=== PATIENT | male | born 1980 | race Caucasian/White ===

== ENCOUNTER 2016-05-13 09:48 | Inpatient (IN) | payer OTHER ==
[2016-05-13 10:38] VITALS: BMI 29.2
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
[2016-05-13] MEDS ORDERED: P-EPHED 60MG/TRIPROLIDI 2.5MG TABLET PO PRN (12:23)
[2016-05-13] MEDS ORDERED: MAGNESIUM CITRATE 300 ML BOTTLE PO PRN (12:23)
[2016-05-13] MEDS ORDERED: MAG HYDROX/AL HYDROX/SIMETH 30 ML UNIT-DOSE CUP PO PRN (12:23)
[2016-05-13] MEDS ORDERED: hydrOXYzine PAMOATE 50 MG CAPSULE (FP) PO PRN (12:23)
[2016-05-13] MEDS ORDERED: MAGNESIUM HYDROX 2400MG/30ML ORAL SUSPENSION 30 ML CUP PO PRN (12:23)
[2016-05-13] MEDS ORDERED: diphenhydrAMINE HCL 50 MG CAPSULE PO PRN (12:23)
[2016-05-13] MEDS ORDERED: LOPERAMIDE HCL 2 MG CAPSULE PO PRN (12:23)
[2016-05-13] MEDS ORDERED: IBUPROFEN 400 MG TABLET (FP) PO PRN (12:23)
[2016-05-13] MEDS ORDERED: ACETAMINOPHEN 325 MG TABLET (FP) PO PRN (12:23)
[2016-05-13] MEDS ORDERED: guaiFENesin/D-METHORPHAN HB 10 ML UNIT-DOSE CUPS PO PRN (12:23)
[2016-05-13] MEDS ORDERED: MENTHOL/PHENOL 1 EACH UD MM PRN (12:23)
[2016-05-13] MEDS ORDERED: diazePAM 5 MG TABLET PO ONE (12:33)
[2016-05-13] MEDS ORDERED: METHADONE HCL 10 MG TABLET (FOR DETOX USE ONLY) PO ONE ×2 (12:35→23:00)
[2016-05-13] MEDS: CYCLOBENZAPRINE HCL 10 MG TABLET (FP) PO PRN (13:21)
[2016-05-13] MEDS: NICOTINE 21 MG/24 HOURS TOPICAL PATCH TD SCH (13:35)
[2016-05-13] MEDS: diazePAM 5 MG TABLET PO SCH ×2 (13:45→22:08)
[2016-05-13] MEDS: GABAPENTIN 300 MG CAPSULE (FP) PO SCH ×2 (13:55→22:08)
--- NOTE | 2016-05-13 14:20 | PN ---
[facility] Progress Note Note: Pt. just admitted to unit a short while ago, reporting rash on medial aspects of bilateral arms, chest, abdomen, and back X approx. 2 weeks. Pt. reports that affected sites feel itchy. Pt. denies any recent sick contact with other persons. Macular erythematous lesions noted scattered throughout each of the above mentioned areas. No bleeding, unusual discharge, or signs of infection noted at any of the affected areas. Benadryl, 25 mg PO Q 6 HRS PRN and Hysrocortisone Topical Ointment TID PRN ordered. Nakia Rivas, DUSTIN
--- NOTE | 2016-05-13 15:07 | CONSULT ---
[facility] Psychiatric Consult - Data Date of interview: 05/13/16 Admission source: [facility] Identifying data: This is one of several admissions to [facility] for this 36 y/ o male seeking detox treatment on for alcohol,marijuana,cocaine ,heroin and benzodiazepine dependence.Patient is single without children, homeless,unemployed and deprived of any source of income. Substance Abuse History: - Smoking Cessation. Smoking history: Current every day smoker. Have you smoked in the past 12 months: Yes. Aproximately how many cigarettes per day: 10. Cigars Per Day: 0. Hx Chewing Tobacco Use: No. Initiated information on smoking cessation: Yes. 'Breaking Loose' booklet given : 05/13/16. - Substance & Tx. History. Hx Alcohol Use: Yes. Hx Substance Use : Yes. Substance Use Type: Alcohol, Cocaine, Heroin, Marijuana, Tranquilizers. Hx Substance Use Treatment: Yes (2014 UNKNOWN FACILITY). - Substances Abused. Heroin. Route: Injection. Frequency: Daily. Amount used: 10-12 bags. Age of first use: 14. Date of Last Use: 05/12/16. Alcohol. Route: Oral. Frequency: Daily. Amount used: 7-8 beers. Age of first use: 12. Date of Last Use: 05/12/16. Cocaine. Route: Injection. Frequency: Daily. Amount used: $200. Age of first use: 18. Date of Last Use: 05/12/16. Marijuana/Hashish. Route: Smoking. Frequency: Daily. Amount used: 1 bag. Age of first use: 11. Date of Last Use: 05/12/16. xanax or klonopin. Route : Oral. Frequency: Daily. Amount used: 6mg. Age of first use: 19. Date of Last Use: 05/11/16. Confirmed by patient in this interview. Medical History: Low back pain and weight loss. Psychiatric History: Patient admits to a distant history of psychiatric hospitalizations (onset at age 13).Diagnosed with Bipolar Disorder and ADHD ( self-report).Medicated with neurontin (dose not recalled by the patient).Mr Swanson states that he is not connected with any [employer] care provider.Released from half-way in February 2016,as per self-report.Patient denies history of suicide attempts.He declines to consider any psychotropic medications other than neurontin and detox regimen. Physical/Sexual Abuse/Trauma History: Patient denies. Additional Comment: Urine Drug Screen Results: THC-Marijuana, KELLY-Cocaine, OPI- Opiates.Noted. Mental Status Exam - Mental Status Exam Alert and Oriented to: Time, Place, Person Cognitive Function: Good Patient Appearance: Disheveled (covered with tattoos :face,torso,neck,arms) Mood: Anxious Affect: Normal Range Patient Behavior: Appropriate, Cooperative Speech Pattern: Clear Voice Loudness: Normal Thought Process: Goal Oriented Thought Disorder: Not Present Hallucinations: Denies Suicidal Ideation: Denies Homicidal Ideation: Denies Insight/Judgement: Poor Sleep: Poorly, Difficulty falling asleep Appetite: Good Muscle strength/Tone: Normal Gait/Station: Normal Psychiatric Findings - Problem List ([place] 1, 2,3) (1) Alcohol dependence with uncomplicated withdrawal Current Visit: Yes Status: Acute (2) Cannabis dependence Current Visit: Yes Status: Acute (3) Opioid dependence with withdrawal Current Visit: Yes Status: Acute (4) Uncomplicated sedative, hypnotic or anxiolytic withdrawal Current Visit: Yes Status: Acute (5) Cocaine dependence Current Visit: Yes Status: Acute (6) Nicotine dependence Current Visit: Yes Status: Acute (7) Substance induced mood disorder Current Visit: Yes Status: Acute (8) ADHD (attention deficit hyperactivity disorder) Current Visit: No Status: Chronic (9) Tattoos Current Visit: Yes Status: Chronic Comment: All over face,neck,chest and upper extremities. (10) Hepatitis B Current Visit: No Status: Chronic (11) Insomnia Current Visit: Yes Status: Acute - Initial Treatment Plan Initial Treatment Plan: Psychoeducation.Detoxification.Zolpidem 10 mg po hs prn.Patient is informed of the risk of parasomnias.He agrees with this plan.Observation.
[2016-05-13 15:11] LABS: HIV 1 & 2 AB NEGATIVE; HIV 1 AGp24 NEGATIVE
--- NOTE | 2016-05-13 15:17 | EKG ---
Test Reason : Blood Pressure : / mmHG Vent. Rate : 060 BPM Atrial Rate : 060 BPM P-R Int : 176 ms QRS Dur : 090 ms QT Int : 420 ms P-R-T Axes : 068 060 029 degrees QTc Int : 420 ms NORMAL SINUS RHYTHM NORMAL ECG NO PREVIOUS ECGS AVAILABLE Confirmed by BILLY NICHOLS MD ([id number]) on 05/13/2016 3:17:08 PM Referred By: Narinder Greenberg Confirmed By:BILLY NICHOLS MD
[2016-05-13 21:45] LABS: URINE APPEARANCE CLEAR; URINE BILIRUBIN NEGATIVE (NEGATIVE); URINE BLOOD NEGATIVE (NEGATIVE); URINE COLOR YELLOW; URINE GLUCOSE (UA) NEGATIVE (NEGATIVE); URINE KETONE TRACE (NEGATIVE); URINE LEUK ESTERASE NEGATIVE (NEGATIVE); URINE NITRITE NEGATIVE (NEGATIVE); URINE PROTEIN NEGATIVE (NEGATIVE); URINE UROBILINOGEN NEGATIVE E.U./dl (0.2-1.0)
[2016-05-13] MEDS: THIAMINE HCL 100 MG TABLET (FP) PO SCH (22:08)
[2016-05-13] MEDS: ZOLPIDEM TARTRATE 10 MG TABLET (PARK CARE ONLY) PO PRN (22:08)
[2016-05-13] MEDS: cloNIDine HCL 0.1 MG TABLET PO SCH (22:08)
[2016-05-14] MEDS: GABAPENTIN 300 MG CAPSULE (FP) PO SCH ×3 (05:51→22:12)
[2016-05-14] MEDS: CYCLOBENZAPRINE HCL 10 MG TABLET (FP) PO PRN ×2 (05:51→19:40)
[2016-05-14] MEDS: diazePAM 5 MG TABLET PO SCH ×3 (05:51→22:12)
[2016-05-14] MEDS ORDERED: METHADONE HCL 10 MG TABLET (FOR DETOX USE ONLY) PO SCH (10:00)
[2016-05-14] MEDS: NICOTINE 21 MG/24 HOURS TOPICAL PATCH TD SCH (10:09)
[2016-05-14] MEDS: PRENATAL VITAMINS W/ FOLIC ACID TABLET (FP) PO SCH (10:10)
[2016-05-14] MEDS: HYDROCORTISONE 1% TOPICAL OINT 30 GM TUBE TP PRN ×3 (10:10→22:11)
[2016-05-14] MEDS: cloNIDine HCL 0.1 MG TABLET PO SCH ×2 (10:10→22:12)
[2016-05-14] MEDS: diazePAM 5 MG TABLET PO PRN ×2 (10:16→17:39)
[2016-05-14 11:15] LABS: MCH 27.5 pg (25.7-33.7); MCHC 32.7 g/dl (32.0-35.9); MEAN PLT VOLUME 8.8 fl (7.5-11.1); PLATELET COUNT 338 K/MM3 (134-434); RDW 12.7 % (11.9-15.9); WHITE BLOOD COUNT 9.3 K/mm3 (4.0-10.0)
--- NOTE | 2016-05-14 11:35 | PN ---
S CIWA - CIWA Score Nausea/Vomitin-No Nausea/No Vomiting Muscle Tremors: 4-Moderate,w/Arms Extend Anxiety: 4-Mod. Anxious/Guarded Agitation: 4-Moderately Restless Paroxysmal Sweats: 3 Orientation: 0-Oriented Tacttile Disturbances: 1-Very Mild Itch/Numbness Auditory Disturbances: 0-None Visual Disturbances: 0-None Headache: 0-None Present CIWA-Ar Total Score: 16 BHS COWS - Scale Resting Pulse: 0= [place] 80 or Below Sweatin=Flushed/Facial Moisture Restless Observation: 1= Difficult to Sit Still Pupil Size: 0= Normal to Room Light Bone or Joint Aches: 2= Severe Diffuse Aches Runny Nose/ Eye Tearin= Runny Nose/Eyes GI Upset > 30mins: 2= Nausea/Diarrhea Tremor Observation of Outstretched Hands: 2= Slight Tremor Visible Yawning Observation: 1= 1-2x During Session Anxiety or Irritability: 2=Irritable/Anxious Goose Flesh Skin: 0=Smooth Skin COWS Score: 14 S Progress Note (SOAP) Subjective: sweating,anxiety,tremors,interrupted sleep,restless,body aches Objective: 05/14/16 11:34 Vital Signs - 8 hr 05/14/16 05/14/16 06:40 10:44 Temperature 97.7 F 97.1 F L Pulse Rate 62 78 Respiratory 18 18 Rate Blood Pressure 145/92 128/75 Laboratory Tests 05/13/16 05/13/16 05/13/16 12:00 13:00 20:00 WBC RBC Hgb Hct MCV MCHC RDW Plt Count MPV Sodium Potassium Chloride Urine Color Yellow Urine Appearance Clear Urine pH 5.0 Ur Specific [place] 1.029 Urine Protein Negative Urine Glucose (UA) Negative Urine Ketones Trace H Urine Blood Negative Urine Nitrite Negative Urine Bilirubin Negative Urine Urobilinogen Negative Ur Leukocyte Esterase Negative Hepatitis C Antibody <0.1 HIV 1&2 Antibody Screen Negative HIV P24 Antigen Negative 05/14/16 05/14/16 06:15 06:15 WBC 9.3 D RBC 4.54 Hgb 12.5 Hct 38.2 MCV 84.0 MCHC 32.7 RDW 12.7 Plt Count 338 D MPV 8.8 Sodium 140 Potassium 3.8 Chloride 100 Urine Color Urine Appearance Urine pH Ur Specific [place] Urine Protein Urine Glucose (UA) Urine Ketones Urine Blood Urine Nitrite Urine Bilirubin Urine Urobilinogen Ur Leukocyte Esterase Hepatitis C Antibody HIV 1&2 Antibody Screen HIV P24 Antigen labs noted Assessment: 05/14/16 11:35 Withdrawal sx. Plan: Continue detox
[2016-05-14 11:41] LABS: ALBUMIN 3.9 g/dl (3.4-5.0); ALK PHOS 118 U/L (45-117); ANION GAP 10 (8-16); BILIRUBIN,TOTAL 0.3 mg/dL (0.2-1.0); CO2 30 mmol/L (21-32); CREATININE 0.9 mg/dL (0.7-1.3); GLUCOSE,RANDOM 66 mg/dL (74-106); SGOT/AST 24 U/L (15-37); SGPT/ALT 32 U/L (12-78); TOT PROT 7.7 g/dl (6.4-8.2)
[2016-05-14] MEDS: METHYL SALICYLATE/MENTHOL OINT 30 GM TUBE TP SCH ×2 (12:30→22:11)
[2016-05-14] MEDS: diphenhydrAMINE HCL 25 MG CAPSULE (FP) PO PRN ×2 (14:16→22:15)
[2016-05-14] MEDS: THIAMINE HCL 100 MG TABLET (FP) PO SCH (22:12)
[2016-05-14] MEDS: ZOLPIDEM TARTRATE 10 MG TABLET (PARK CARE ONLY) PO PRN (22:12)
[2016-05-15] MEDS: diazePAM 5 MG TABLET PO PRN ×2 (05:42→14:23)
[2016-05-15] MEDS: CYCLOBENZAPRINE HCL 10 MG TABLET (FP) PO PRN (05:42)
[2016-05-15] MEDS: GABAPENTIN 300 MG CAPSULE (FP) PO SCH ×3 (05:42→22:22)
[2016-05-15] MEDS: diphenhydrAMINE HCL 25 MG CAPSULE (FP) PO PRN (05:49)
[2016-05-15] MEDS: HYDROCORTISONE 1% TOPICAL OINT 30 GM TUBE TP PRN ×3 (05:50→22:21)
[2016-05-15] MEDS: NICOTINE 21 MG/24 HOURS TOPICAL PATCH TD SCH (10:06)
[2016-05-15] MEDS: PRENATAL VITAMINS W/ FOLIC ACID TABLET (FP) PO SCH (10:06)
[2016-05-15] MEDS: diazePAM 5 MG TABLET PO SCH ×2 (10:06→22:23)
[2016-05-15] MEDS: METHADONE HCL 5 MG TABLET (FOR DETOX USE ONLY) PO SCH (10:06)
[2016-05-15] MEDS: cloNIDine HCL 0.1 MG TABLET PO SCH ×2 (10:06→22:22)
[2016-05-15] MEDS: METHYL SALICYLATE/MENTHOL OINT 30 GM TUBE TP SCH ×2 (12:13→23:24)
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
[2016-05-15] MEDS: RALTEGRAVIR POTASSIUM 400 MG TAB PO SCH (22:20)
[2016-05-15] MEDS: THIAMINE HCL 100 MG TABLET (FP) PO SCH (22:20)
[2016-05-15] MEDS: ZOLPIDEM TARTRATE 10 MG TABLET (PARK CARE ONLY) PO PRN (22:22)
[2016-05-16] MEDS: diazePAM 5 MG TABLET PO PRN (05:57)
[2016-05-16] MEDS: GABAPENTIN 300 MG CAPSULE (FP) PO SCH ×3 (05:57→22:09)
[2016-05-16] MEDS: CYCLOBENZAPRINE HCL 10 MG TABLET (FP) PO PRN (05:57)
[2016-05-16] MEDS: HYDROCORTISONE 1% TOPICAL OINT 30 GM TUBE TP PRN ×2 (06:00→10:12)
[2016-05-16] MEDS: METHYL SALICYLATE/MENTHOL OINT 30 GM TUBE TP SCH ×2 (10:12→22:10)
[2016-05-16] MEDS: PRENATAL VITAMINS W/ FOLIC ACID TABLET (FP) PO SCH (10:13)
[2016-05-16] MEDS: diazePAM 5 MG TABLET PO SCH ×2 (10:13→22:09)
[2016-05-16] MEDS: RALTEGRAVIR POTASSIUM 400 MG TAB PO SCH ×2 (10:13→22:10)
[2016-05-16] MEDS: NICOTINE 21 MG/24 HOURS TOPICAL PATCH TD SCH (10:13)
[2016-05-16] MEDS: METHADONE HCL 5 MG TABLET (FOR DETOX USE ONLY) PO SCH (10:13)
[2016-05-16] MEDS: cloNIDine HCL 0.1 MG TABLET PO SCH ×2 (10:13→22:10)
[2016-05-16] MEDS: EMTRICITABINE 200MG/TENOFOVIR 300MG PO SCH (10:14)
--- NOTE | 2016-05-16 13:37 | PN ---
[facility] Progress Note (SOAP) Subjective: Sweating,interrupted sleep,restless Objective: 05/16/16 13:36 Vital Signs - 8 hr 05/16/16 05/16/16 05/16/16 06:46 09:32 13:26 Temperature 96.1 F L 99.4 F Pulse Rate 74 91 H 77 Respiratory 16 20 18 Rate Blood Pressure 114/77 120/76 121/75 Laboratory Tests 05/13/16 05/13/16 05/13/16 12:00 13:00 20:00 WBC RBC Hgb Hct MCV MCHC RDW Plt Count MPV Sodium Potassium Chloride Carbon Dioxide Anion Gap BUN Creatinine Creat Clearance w eGFR POC Glucometer Random Glucose Calcium Total Bilirubin AST ALT Alkaline Phosphatase Total Protein Albumin Urine Color Yellow Urine Appearance Clear Urine pH 5.0 Ur Specific [place] 1.029 Urine Protein Negative Urine Glucose (UA) Negative Urine Ketones Trace H Urine Blood Negative Urine Nitrite Negative Urine Bilirubin Negative Urine Urobilinogen Negative Ur Leukocyte Esterase Negative RPR Titer Hepatitis C Antibody <0.1 HIV 1&2 Antibody Screen Negative HIV P24 Antigen Negative 05/14/16 05/14/16 05/14/16 06:15 06:15 06:15 WBC 9.3 D RBC 4.54 Hgb 12.5 Hct 38.2 MCV 84.0 MCHC 32.7 RDW 12.7 Plt Count 338 D MPV 8.8 Sodium 140 Potassium 3.8 Chloride 100 Carbon Dioxide 30 Anion Gap 10 BUN 16 D Creatinine 0.9 D Creat Clearance w eGFR > 60 POC Glucometer Random Glucose 66 L D Calcium 9.0 Total Bilirubin 0.3 AST 24 ALT 32 Alkaline Phosphatase 118 H D Total Protein 7.7 Albumin 3.9 Urine Color Urine Appearance Urine pH Ur Specific [place] Urine Protein Urine Glucose (UA) Urine Ketones Urine Blood Urine Nitrite Urine Bilirubin Urine Urobilinogen Ur Leukocyte Esterase RPR Titer Nonreactive Hepatitis C Antibody HIV 1&2 Antibody Screen HIV P24 Antigen 05/15/16 05:45 WBC RBC Hgb Hct MCV MCHC RDW Plt Count MPV Sodium Potassium Chloride Carbon Dioxide Anion Gap BUN Creatinine Creat Clearance w eGFR POC Glucometer 79 Random Glucose Calcium Total Bilirubin AST ALT Alkaline Phosphatase Total Protein Albumin Urine Color Urine Appearance Urine pH Ur Specific [place] Urine Protein Urine Glucose (UA) Urine Ketones Urine Blood Urine Nitrite Urine Bilirubin Urine Urobilinogen Ur Leukocyte Esterase RPR Titer Hepatitis C Antibody HIV 1&2 Antibody Screen HIV P24 Antigen labs noted Assessment: 05/16/16 13:37 Withdrawal sx. Plan: Continue detox
[2016-05-16] MEDS ORDERED: HYDROCORTISONE 1% TOPICAL CREAM 30 GM TUBE TP SCH (14:00)
[2016-05-16] MEDS: THIAMINE HCL 100 MG TABLET (FP) PO SCH (22:09)
[2016-05-17] MEDS: ZOLPIDEM TARTRATE 10 MG TABLET (PARK CARE ONLY) PO PRN ×2 (00:19→22:10)
[2016-05-17] MEDS: GABAPENTIN 300 MG CAPSULE (FP) PO SCH ×3 (05:28→22:10)
[2016-05-17] MEDS: HYDROCORTISONE 1% TOPICAL OINT 30 GM TUBE TP PRN (05:31)
[2016-05-17] MEDS ORDERED: METHADONE HCL 10 MG TABLET (FOR DETOX USE ONLY) PO SCH (10:00)
[2016-05-17] MEDS ORDERED: diazePAM 5 MG TABLET PO SCH (10:00)
[2016-05-17] MEDS: RALTEGRAVIR POTASSIUM 400 MG TAB PO SCH ×2 (10:07→22:10)
[2016-05-17] MEDS: PRENATAL VITAMINS W/ FOLIC ACID TABLET (FP) PO SCH (10:07)
[2016-05-17] MEDS: cloNIDine HCL 0.1 MG TABLET PO SCH ×2 (10:07→22:10)
[2016-05-17] MEDS: NICOTINE 21 MG/24 HOURS TOPICAL PATCH TD SCH (10:08)
[2016-05-17] MEDS: METHYL SALICYLATE/MENTHOL OINT 30 GM TUBE TP SCH ×2 (10:08→23:21)
[2016-05-17] MEDS: EMTRICITABINE 200MG/TENOFOVIR 300MG PO SCH (10:08)
--- NOTE | 2016-05-17 10:19 | PN ---
S Progress Note (SOAP) Subjective: ANXIETY,IRRITABILITY,C/O SKIN ERUPTIONS ON LEGS AND BACK. Objective: 05/17/16 10:18 Vital Signs Temperature 97.3 F L 05/17/16 10:01 Pulse Rate 79 05/17/16 10:01 Respiratory Rate 18 05/17/16 10:01 Blood Pressure 135/76 05/17/16 10:01 O2 Sat by Pulse Oximetry (%) GENERALIZED RASHES ON BACK AND LEGS AT DIFFERENT STAGES OF HEALING. ONE RECENT RED BUMP ON LEFT THIGH. Assessment: 05/17/16 10:18 WITHDRAWAL SX Plan: CONTINUE DETOX BACITRACIN OINTMENT.
[2016-05-17] MEDS: BACITRACIN 30 GM TUBE TOPICAL OINTMENT TP SCH ×2 (10:53→22:10)
[2016-05-17] MEDS: THIAMINE HCL 100 MG TABLET (FP) PO SCH (22:10)
[2016-05-18] MEDS: GABAPENTIN 300 MG CAPSULE (FP) PO SCH (05:32)
[2016-05-18] MEDS ORDERED: METHADONE HCL 5 MG TABLET (FOR DETOX USE ONLY) PO SCH (06:00)
[2016-05-18 06:14] VITALS: BP 129/77; PULSE 82; TEMP 97
[2016-05-18] MEDS: NICOTINE 21 MG/24 HOURS TOPICAL PATCH TD SCH (10:50)
[2016-05-18] MEDS: EMTRICITABINE 200MG/TENOFOVIR 300MG PO SCH (10:50)
[2016-05-18] MEDS: BACITRACIN 30 GM TUBE TOPICAL OINTMENT TP SCH (10:50)
[2016-05-18] MEDS: METHYL SALICYLATE/MENTHOL OINT 30 GM TUBE TP SCH (10:50)
[2016-05-18] MEDS: PRENATAL VITAMINS W/ FOLIC ACID TABLET (FP) PO SCH (10:50)
[2016-05-18] MEDS: cloNIDine HCL 0.1 MG TABLET PO SCH (10:50)
[2016-05-18] MEDS: RALTEGRAVIR POTASSIUM 400 MG TAB PO SCH (10:50)
--- NOTE | 2016-05-18 11:27 | DS ---
[facility] Detox Discharge Summary Admission Date: 05/13/16 Discharge Date: 05/18/16 - History Present History: Alcohol Dependence, Cannabis Dependence, Cocaine Dependence, Opioid Dependence Additional Comments: DETOX COMPLETED. ALERT O X 3. NAD. PT GIVEN REFERRAL PAPERS TO FOLLOW UP AT [facility] FOR POST EXPOSURE CARE RECOMMENDATIONS. Pertinent Past History: HIV EXPOSURE FROM TAINTED BLOOD AND PEP(POST EXPOSURE PROPHYLAXIS TREATMENT WITH ISENTRESS 400 MG BID AND TRUVADA DAILY TILL D/C FROM DETOX) RASH ALL ENTIRE BODY( ERUPTIONS) X 2 WEEKS TATTOOS HEP B ADHD DEIDRE - Physical Exam Results Vital Signs: Vital Signs Temperature 97 F L 05/18/16 06:14 Pulse Rate 82 05/18/16 06:14 Respiratory Rate 18 05/18/16 06:14 Blood Pressure 129/77 05/18/16 06:14 O2 Sat by Pulse Oximetry (%) Pertinent Admission Physical Exam Findings: WITHDRAWAL SX Laboratory Last Values WBC 9.3 K/mm3 (4.0-10.0) D 05/14/16 06:15 RBC 4.54 M/mm3 (4.00-5.60) 05/14/16 06:15 Hgb 12.5 GM/dL (11.7-16.9) 05/14/16 06:15 Hct 38.2 % (35.4-49) 05/14/16 06:15 MCV 84.0 fl (80-96) 05/14/16 06:15 MCHC 32.7 g/dl (32.0-35.9) 05/14/16 06:15 RDW 12.7 % (11.9-15.9) 05/14/16 06:15 Plt Count 338 K/MM3 (134-434) D 05/14/16 06:15 MPV 8.8 fl (7.5-11.1) 05/14/16 06:15 Sodium 140 mmol/L (136-145) 05/14/16 06:15 Potassium 3.8 mmol/L (3.5-5.1) 05/14/16 06:15 Chloride 100 mmol/L (98-107) 05/14/16 06:15 Carbon Dioxide 30 mmol/L (21-32) 05/14/16 06:15 Anion Gap 10 (8-16) 05/14/16 06:15 BUN 16 mg/dL (7-18) D 05/14/16 06:15 Creatinine 0.9 mg/dL (0.7-1.3) D 05/14/16 06:15 Creat Clearance w eGFR > 60 (>60) 05/14/16 06:15 POC Glucometer 79 UNITS (()) 05/15/16 05:45 Random Glucose 66 mg/dL (74-106) L D 05/14/16 06:15 Calcium 9.0 mg/dL (8.5-10.1) 05/14/16 06:15 Total Bilirubin 0.3 mg/dL (0.2-1.0) 05/14/16 06:15 AST 24 U/L (15-37) 05/14/16 06:15 ALT 32 U/L (12-78) 05/14/16 06:15 Alkaline Phosphatase 118 U/L (45-117) H D 05/14/16 06:15 Total Protein 7.7 g/dl (6.4-8.2) 05/14/16 06:15 Albumin 3.9 g/dl (3.4-5.0) 05/14/16 06:15 Urine Color Yellow 05/13/16 20:00 Urine Appearance Clear 05/13/16 20:00 Urine pH 5.0 (5.0-8.0) 05/13/16 20:00 Ur Specific [place] 1.029 (1.001-1.035) 05/13/16 20:00 Urine Protein Negative (NEGATIVE) 05/13/16 20:00 Urine Glucose (UA) Negative (NEGATIVE) 05/13/16 20:00 Urine Ketones Trace (NEGATIVE) H 05/13/16 20:00 Urine Blood Negative (NEGATIVE) 05/13/16 20:00 Urine Nitrite Negative (NEGATIVE) 05/13/16 20:00 Urine Bilirubin Negative (NEGATIVE) 05/13/16 20:00 Urine Urobilinogen Negative E.U./dl (0.2-1.0) 05/13/16 20:00 Ur Leukocyte Esterase Negative (NEGATIVE) 05/13/16 20:00 RPR Titer Nonreactive (NONREACTIVE) 05/14/16 06:15 Hepatitis C Antibody <0.1 s/co ratio (0.0-0.9) 05/13/16 13:00 HIV 1&2 Antibody Screen Negative 05/13/16 12:00 HIV P24 Antigen Negative 05/13/16 12:00 - Treatment Hospital Course: Detox Protocol Followed, Detoxed Safely, Responded well, Discharged Condition Good - Medication Discharge Medications: Ambulatory Orders NK [No Known Home Medication] 05/15/16 - Diagnosis (1) Alcohol dependence with uncomplicated withdrawal Current Visit: Yes Status: Acute (2) Nicotine dependence Current Visit: Yes Status: Acute Qualifiers: Nicotine product type: cigarettes Substance use status: in withdrawal Qualified Code(s): F17.213 - Nicotine dependence, cigarettes, with withdrawal (3) Opioid dependence with withdrawal Current Visit: Yes Status: Acute (4) Rash of entire body Current Visit: Yes Status: Acute (5) Uncomplicated sedative, hypnotic or anxiolytic withdrawal Current Visit: Yes Status: Chronic (6) Tattoos Current Visit: Yes Status: Chronic (7) HIV exposure from tainted blood Current Visit: Yes Status: Acute - AMA Did Patient Leave Against Medical Advice: No
== END 2016-05-18 09:20 | disposition home or self-care (01) | DRG 773 ==
LOC: YASAS 09:48 → Y3N 11:58
PROVIDERS: ADMIT Internal Medicine; ATTEND Internal Medicine
PROC: HZ2ZZZZ Detoxification Services for Substance Abuse Treatment (ICD-10-PCS; principal; 2016-05-13)
DX: F11.23 Opioid dependence with withdrawal (principal); F13.230 Sedative, hypnotic or anxiolytic dependence with withdrawal, uncomplicated; F14.20 Cocaine dependence, uncomplicated; F12.20 Cannabis dependence, uncomplicated; F17.210 Nicotine dependence, cigarettes, uncomplicated; F90.9 Attention-deficit hyperactivity disorder, unspecified type; F41.8 Other specified anxiety disorders; R21 Rash and other nonspecific skin eruption; Z20.6 Contact with and (suspected) exposure to human immunodeficiency virus [HIV]; B18.1 Chronic viral hepatitis B without delta-agent; G47.00 Insomnia, unspecified; M54.5 Low back pain; L81.8 Other specified disorders of pigmentation; Z87.898 Personal history of other specified conditions; Z59.0 Homelessness
CPT/HCPCS: 36415; 80053; 81003; 85027; 86593; 87389; 93005; 93010

== ENCOUNTER 2016-05-15 11:58 | Emergency (ER) | payer OTHER ==
[2016-05-15 12:08] VITALS: BP 130/77; PULSE 67; TEMP 98; BMI 29.6
[2016-05-15] MEDS ORDERED: RALTEGRAVIR POTASSIUM 400 MG TAB PO ONE (13:04)
[2016-05-15] MEDS ORDERED: EMTRICITABINE 200MG/TENOFOVIR 300MG PO ONE (13:24)
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
== END 2016-05-15 13:43 | disposition other institution (70) ==
LOC: JERFT 11:58
DX: Z20.6 Contact with and (suspected) exposure to human immunodeficiency virus [HIV] (principal)
CPT/HCPCS: 99281-25

== ENCOUNTER 2019-03-05 10:11 | Inpatient (IN) | payer OTHER ==
[2019-03-05 10:32] VITALS: BMI 29.6
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
[2019-03-05] MEDS ORDERED: IBUPROFEN 400 MG TABLET (FP) PO PRN (10:59)
[2019-03-05] MEDS ORDERED: MELATONIN 5 MG TABLETS PO PRN (10:59)
[2019-03-05] MEDS ORDERED: MENTHOL/PHENOL 1 EACH UD MM PRN (10:59)
[2019-03-05] MEDS ORDERED: BISMUTH SUBSALICYLATE 262 MG/15 ML BTL PO PRN (10:59)
[2019-03-05] MEDS ORDERED: chlordiazePOXIDE HCL 25 MG CAPSULE PO PRN (10:59)
[2019-03-05] MEDS ORDERED: MAG HYDROX/AL HYDROX/SIMETH 30 ML UNIT-DOSE CUP PO PRN (10:59)
[2019-03-05] MEDS ORDERED: cloNIDine HCL 0.1 MG TABLET PO PRN (10:59)
[2019-03-05] MEDS ORDERED: MAGNESIUM HYDROX 2400MG/30ML ORAL SUSPENSION 30 ML CUP PO PRN (10:59)
[2019-03-05] MEDS ORDERED: hydrOXYzine PAMOATE 25 MG CAPSULE (FP) PO PRN (10:59)
[2019-03-05] MEDS ORDERED: MAGNESIUM CITRATE 300 ML BOTTLE PO PRN (10:59)
[2019-03-05] MEDS ORDERED: METHOCARBAMOL 500 MG TABLET PO PRN (10:59)
[2019-03-05] MEDS ORDERED: ACETAMINOPHEN 325 MG TABLET (FP) PO PRN ×2 (10:59)
[2019-03-05] MEDS ORDERED: METHADONE HCL 10 MG TABLET (FOR DETOX USE ONLY) PO ONE (11:45)
[2019-03-05] MEDS: chlordiazePOXIDE HCL 25 MG CAPSULE PO SCH ×3 (12:34→22:32)
[2019-03-05 15:43] LABS: HEMATOCRIT 36.4 % (35.4-49); HEMOGLOBIN 11.7 GM/dL (11.7-16.9); MCH 26.2 pg (25.7-33.7); MCHC 32.3 g/dl (32.0-35.9); MEAN CELL VOLUME 81.2 fl (80-96); MEAN PLT VOLUME 7.9 fl (7.5-11.1); PLATELET COUNT 375 K/MM3 (134-434); RBC 4.48 M/mm3 (4.00-5.60); RDW 13.9 % (11.9-15.9); WHITE BLOOD COUNT 7.7 K/mm3 (4.0-10.0)
[2019-03-05 15:52] LABS: ALBUMIN 3.4 g/dl (3.4-5.0); BILIRUBIN,TOTAL 0.2 mg/dL (0.2-1); BLOOD UREA NITROGEN 11.4 mg/dL (7-18); CALCIUM 8.7 mg/dL (8.5-10.1); CREATININE 0.8 mg/dL (0.55-1.3); POTASSIUM 4.1 mmol/L (3.5-5.1); TOT PROT 6.7 g/dl (6.4-8.2)
[2019-03-05] MEDS: THIAMINE HCL 100 MG TABLET (FP) PO SCH (22:32)
[2019-03-06] MEDS: chlordiazePOXIDE HCL 25 MG CAPSULE PO SCH ×4 (06:01→22:37)
[2019-03-06] MEDS ORDERED: METHADONE HCL 10 MG TABLET (FOR DETOX USE ONLY) ONE (09:28)
[2019-03-06] MEDS ORDERED: METHADONE HCL 5 MG TABLET (FOR DETOX USE ONLY) ONE (09:28)
[2019-03-06] MEDS ORDERED: METHADONE (DETOX) 20 MG, METHADONE (DETOX) 5 MG PO ONE (10:00)
[2019-03-06] MEDS: PRENATAL VITAMINS W/ FOLIC ACID TABLET (FP) PO SCH (10:27)
[2019-03-06] MEDS ORDERED: ONDANSETRON *ODT* 4 MG TABLET SL PRN (11:20)
--- NOTE | 2019-03-06 11:20 | PN ---
S CIWA - CIWA Score Nausea/Vomitin-No Nausea/No Vomiting Muscle Tremors: 3 Anxiety: 3 Agitation: 4-Moderately Restless Paroxysmal Sweats: 3 Orientation: 0-Oriented Tacttile Disturbances: 0-None Auditory Disturbances: 0-None Visual Disturbances: 0-None Headache: 0-None Present CIWA-Ar Total Score: 13 [facility] COWS - Scale Resting Pulse: 0= [place] 80 or Below Sweatin= Chills/Flushing Restless Observation: 1= Difficult to Sit Still Pupil Size: 0= Normal to Room Light Bone or Joint Aches: 2= Severe Diffuse Aches Runny Nose/ Eye Tearin= Nasal Congestion GI Upset > 30mins: 0= None Tremor Observation of Outstretched Hands: 2= Slight Tremor Visible Yawning Observation: 2= >3x During Session Anxiety or Irritability: 2=Irritable/Anxious Goose Flesh Skin: 3=Piloerection COWS Score: 14 [facility] Progress Note (SOAP) Subjective: hot/cold sweats chills goosebumps anxiety restless body aches interrupted sleep Objective: 03/06/19 11:20 Vital Signs Temperature 97.7 F 03/06/19 09:18 Pulse Rate 69 03/06/19 09:18 Respiratory Rate 18 03/06/19 09:18 Blood Pressure 141/81 03/06/19 09:18 O2 Sat by Pulse Oximetry (%) Laboratory Tests 03/05/19 03/05/19 03/05/19 11:40 11:40 11:40 WBC 7.7 RBC 4.48 Hgb 11.7 Hct 36.4 MCV 81.2 MCH 26.2 MCHC 32.3 RDW 13.9 Plt Count 375 MPV 7.9 D Sodium 142 Potassium 4.1 Chloride 109 H Carbon Dioxide 28 Anion Gap 4 L BUN 11.4 Creatinine 0.8 Est GFR (CKD-EPI)AfAm 131.34 Est GFR (CKD-EPI)NonAf 113.32 Random Glucose 109 H Calcium 8.7 Total Bilirubin 0.2 AST 19 ALT 31 Alkaline Phosphatase 98 Total Protein 6.7 Albumin 3.4 RPR Titer Nonreactive HIV 1&2 Antibody Screen HIV P24 Antigen 03/05/19 11:40 WBC RBC Hgb Hct MCV MCH MCHC RDW Plt Count MPV Sodium Potassium Chloride Carbon Dioxide Anion Gap BUN Creatinine Est GFR (CKD-EPI)AfAm Est GFR (CKD-EPI)NonAf Random Glucose Calcium Total Bilirubin AST ALT Alkaline Phosphatase Total Protein Albumin RPR Titer HIV 1&2 Antibody Screen Negative HIV P24 Antigen Negative aaox3 ambulating no acute distress Assessment: 03/06/19 11:20 withdrawals Plan: continue detox increase fluids
[2019-03-06] MEDS ORDERED: VITAMINS A AND D TOPICAL OINTMENT 60 GM TUBE TP PRN (11:59)
[2019-03-06] MEDS: THIAMINE HCL 100 MG TABLET (FP) PO SCH (22:38)
[2019-03-07] MEDS: chlordiazePOXIDE HCL 25 MG CAPSULE PO SCH ×4 (05:53→22:36)
[2019-03-07] MEDS ORDERED: METHADONE HCL 10 MG TABLET (FOR DETOX USE ONLY) PO ONE (10:00)
[2019-03-07] MEDS: PRENATAL VITAMINS W/ FOLIC ACID TABLET (FP) PO SCH (10:57)
--- NOTE | 2019-03-07 11:15 | PN ---
[facility] CIWA - CIWA Score Nausea/Vomitin-No Nausea/No Vomiting Muscle Tremors: 3 Anxiety: 2 Agitation: 3 Paroxysmal Sweats: 3 Orientation: 0-Oriented Tacttile Disturbances: 0-None Auditory Disturbances: 0-None Visual Disturbances: 0-None Headache: 0-None Present CIWA-Ar Total Score: 11 S COWS - Scale Resting Pulse: 0= [place] 80 or Below Sweatin= Chills/Flushing Restless Observation: 1= Difficult to Sit Still Pupil Size: 0= Normal to Room Light Bone or Joint Aches: 1= Mild Discomfort Runny Nose/ Eye Tearin= Nasal Congestion GI Upset > 30mins: 0= None Tremor Observation of Outstretched Hands: 1= Tremor [place], Not Seen Yawning Observation: 1= 1-2x During Session Anxiety or Irritability: 1=Feels Anxious/Irritable Goose Flesh Skin: 0=Smooth Skin COWS Score: 7 S Progress Note (SOAP) Subjective: hot/cold sweats chills agitation irritable Objective: 03/07/19 11:04 Vital Signs Temperature 97.6 F 03/07/19 09:15 Pulse Rate 65 03/07/19 09:15 Respiratory Rate 16 03/07/19 09:15 Blood Pressure 140/78 03/07/19 09:15 O2 Sat by Pulse Oximetry (%) Laboratory Tests 03/05/19 03/05/19 03/05/19 11:40 11:40 11:40 WBC 7.7 RBC 4.48 Hgb 11.7 Hct 36.4 MCV 81.2 MCH 26.2 MCHC 32.3 RDW 13.9 Plt Count 375 MPV 7.9 D Sodium 142 Potassium 4.1 Chloride 109 H Carbon Dioxide 28 Anion Gap 4 L BUN 11.4 Creatinine 0.8 Est GFR (CKD-EPI)AfAm 131.34 Est GFR (CKD-EPI)NonAf 113.32 Random Glucose 109 H Calcium 8.7 Total Bilirubin 0.2 AST 19 ALT 31 Alkaline Phosphatase 98 Total Protein 6.7 Albumin 3.4 RPR Titer Nonreactive HIV 1&2 Antibody Screen HIV P24 Antigen 03/05/19 11:40 WBC RBC Hgb Hct MCV MCH MCHC RDW Plt Count MPV Sodium Potassium Chloride Carbon Dioxide Anion Gap BUN Creatinine Est GFR (CKD-EPI)AfAm Est GFR (CKD-EPI)NonAf Random Glucose Calcium Total Bilirubin AST ALT Alkaline Phosphatase Total Protein Albumin RPR Titer HIV 1&2 Antibody Screen Negative HIV P24 Antigen Negative aaox3 ambulating no acute distress Assessment: 03/07/19 11:04 withdrawals Plan: continue detox
[2019-03-07] MEDS: NICOTINE POLACRILEX 4 MG GUM BUC PRN (18:33)
[2019-03-07] MEDS: THIAMINE HCL 100 MG TABLET (FP) PO SCH (22:36)
[2019-03-08] MEDS ORDERED: chlordiazePOXIDE HCL 10 MG CAPSULE PO PRN
[2019-03-08] MEDS: chlordiazePOXIDE HCL 10 MG CAPSULE PO SCH ×4 (05:55→22:02)
[2019-03-08] MEDS: NICOTINE POLACRILEX 4 MG GUM BUC PRN ×3 (05:57→22:03)
[2019-03-08] MEDS ORDERED: METHADONE HCL 10 MG TABLET (FOR DETOX USE ONLY) ONE (09:22)
[2019-03-08] MEDS ORDERED: METHADONE HCL 5 MG TABLET (FOR DETOX USE ONLY) ONE (09:22)
[2019-03-08] MEDS ORDERED: METHADONE (DETOX) 10 MG, METHADONE (DETOX) 5 MG PO ONE (10:00)
--- NOTE | 2019-03-08 10:20 | PN ---
[facility] CIWA - CIWA Score Nausea/Vomitin-No Nausea/No Vomiting Muscle Tremors: 2 Anxiety: 1-Mildly Anxious Agitation: 2 Paroxysmal Sweats: 1-Minimal Palms Moist Orientation: 0-Oriented Tacttile Disturbances: 0-None Auditory Disturbances: 0-None Visual Disturbances: 0-None Headache: 0-None Present CIWA-Ar Total Score: 6 S COWS - Scale Resting Pulse: 0= [place] 80 or Below Sweatin= Chills/Flushing Restless Observation: 1= Difficult to Sit Still Pupil Size: 0= Normal to Room Light Bone or Joint Aches: 1= Mild Discomfort Runny Nose/ Eye Tearin= Nasal Congestion GI Upset > 30mins: 0= None Tremor Observation of Outstretched Hands: 0= None Yawning Observation: 0= None Anxiety or Irritability: 1=Feels Anxious/Irritable Goose Flesh Skin: 0=Smooth Skin COWS Score: 5 [facility] Progress Note (SOAP) Subjective: I cut my lip where my piercing is. agitation irritable sweats Objective: 03/08/19 10:20 Vital Signs Temperature 97.9 F 03/08/19 09:18 Pulse Rate 72 03/08/19 09:18 Respiratory Rate 18 03/08/19 09:18 Blood Pressure 139/82 03/08/19 09:18 O2 Sat by Pulse Oximetry (%) aaox3 ambulating no acute distress Assessment: 03/08/19 10:20 withdrawals small superficial cut noted to Plan: continue detox increase fluids bacitacin oint
[2019-03-08] MEDS: BACITRACIN 15 GM TUBE TOPICAL OINTMENT TP SCH (10:40)
[2019-03-08] MEDS: PRENATAL VITAMINS W/ FOLIC ACID TABLET (FP) PO SCH (10:41)
[2019-03-08] MEDS: THIAMINE HCL 100 MG TABLET (FP) PO SCH (22:01)
[2019-03-09] MEDS: chlordiazePOXIDE HCL 10 MG CAPSULE PO SCH ×2 (05:41→18:00)
[2019-03-09] MEDS ORDERED: METHADONE HCL 10 MG TABLET (FOR DETOX USE ONLY) PO ONE (10:00)
[2019-03-09] MEDS: BACITRACIN 15 GM TUBE TOPICAL OINTMENT TP SCH (10:21)
[2019-03-09] MEDS: PRENATAL VITAMINS W/ FOLIC ACID TABLET (FP) PO SCH (10:21)
--- NOTE | 2019-03-09 12:47 | PN ---
[facility] CIWA - CIWA Score Nausea/Vomitin-No Nausea/No Vomiting Muscle Tremors: 2 Anxiety: 3 Agitation: 3 Paroxysmal Sweats: 2 (and Chills.) Orientation: 0-Oriented Tacttile Disturbances: 1-Very Mild Itch/Numbness Auditory Disturbances: 0-None Visual Disturbances: 0-None Headache: 0-None Present CIWA-Ar Total Score: 11 S COWS - Scale Resting Pulse: 0= [place] 80 or Below Sweatin= Chills/Flushing Restless Observation: 1= Difficult to Sit Still Pupil Size: 0= Normal to Room Light Bone or Joint Aches: 2= Severe Diffuse Aches Runny Nose/ Eye Tearin= None GI Upset > 30mins: 0= None Tremor Observation of Outstretched Hands: 0= None Yawning Observation: 1= 1-2x During Session Anxiety or Irritability: 2=Irritable/Anxious Goose Flesh Skin: 0=Smooth Skin COWS Score: 7 S Progress Note (SOAP) Subjective: Chills, Restless, Body Aches. Objective: PATIENT A & O X 3, OBSERVED AMBULATING ON DETOX UNIT UNASSISTED IN NO ACUTE DISTRESS. 03/09/19 12:44 Vital Signs Temperature 98.7 F 03/09/19 09:23 Pulse Rate 72 03/09/19 09:23 Respiratory Rate 18 03/09/19 09:23 Blood Pressure 142/77 03/09/19 09:23 O2 Sat by Pulse Oximetry (%) Laboratory Tests 03/05/19 03/05/19 03/05/19 11:40 11:40 11:40 WBC 7.7 RBC 4.48 Hgb 11.7 Hct 36.4 MCV 81.2 MCH 26.2 MCHC 32.3 RDW 13.9 Plt Count 375 MPV 7.9 D Sodium 142 Potassium 4.1 Chloride 109 H Carbon Dioxide 28 Anion Gap 4 L BUN 11.4 Creatinine 0.8 Est GFR (CKD-EPI)AfAm 131.34 Est GFR (CKD-EPI)NonAf 113.32 Random Glucose 109 H Calcium 8.7 Total Bilirubin 0.2 AST 19 ALT 31 Alkaline Phosphatase 98 Total Protein 6.7 Albumin 3.4 RPR Titer Nonreactive HIV 1&2 Antibody Screen HIV P24 Antigen 03/05/19 11:40 WBC RBC Hgb Hct MCV MCH MCHC RDW Plt Count MPV Sodium Potassium Chloride Carbon Dioxide Anion Gap BUN Creatinine Est GFR (CKD-EPI)AfAm Est GFR (CKD-EPI)NonAf Random Glucose Calcium Total Bilirubin AST ALT Alkaline Phosphatase Total Protein Albumin RPR Titer HIV 1&2 Antibody Screen Negative HIV P24 Antigen Negative LABS NOTED. Assessment: 03/09/19 12:45 WITHDRAWAL SYMPTOMS. Plan: CONTINUE DETOX INCREASE DAILY ORAL WATER INTAKE. PATIENT SCHEDULED FOR DISCHARGE FROM DETOX UNIT TOMORROW.
[2019-03-09] MEDS: THIAMINE HCL 100 MG TABLET (FP) PO SCH (22:13)
[2019-03-10] MEDS ORDERED: chlordiazePOXIDE HCL 10 MG CAPSULE PO ONE (05:00)
[2019-03-10] MEDS ORDERED: METHADONE HCL 5 MG TABLET (FOR DETOX USE ONLY) PO ONE (06:00)
[2019-03-10 09:26] VITALS: BP 126/72; PULSE 69; TEMP 98.1
[2019-03-10] MEDS: BACITRACIN 15 GM TUBE TOPICAL OINTMENT TP SCH (10:18)
[2019-03-10] MEDS: PRENATAL VITAMINS W/ FOLIC ACID TABLET (FP) PO SCH (10:18)
--- NOTE | 2019-03-10 13:37 | DS ---
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 Patient instructed to follow up with his PCP post discharge in 1 -2 weeks. Pertinent Past History: Alcohol dependence, chronic Cocaine dependence, chronic IV use Opioid dependence, chronic IV use - Physical Exam Results Vital Signs: Vital Signs Temperature 98.1 F 03/10/19 09:25 Pulse Rate 69 03/10/19 09:25 Respiratory Rate 16 03/10/19 09:25 Blood Pressure 126/72 03/10/19 09:25 O2 Sat by Pulse Oximetry (%) Pertinent Admission Physical Exam Findings: Withdrawal sxs Laboratory Tests 03/05/19 03/05/19 03/05/19 11:40 11:40 11:40 WBC 7.7 RBC 4.48 Hgb 11.7 Hct 36.4 MCV 81.2 MCH 26.2 MCHC 32.3 RDW 13.9 Plt Count 375 MPV 7.9 D Sodium 142 Potassium 4.1 Chloride 109 H Carbon Dioxide 28 Anion Gap 4 L BUN 11.4 Creatinine 0.8 Est GFR (CKD-EPI)AfAm 131.34 Est GFR (CKD-EPI)NonAf 113.32 Random Glucose 109 H Calcium 8.7 Total Bilirubin 0.2 AST 19 ALT 31 Alkaline Phosphatase 98 Total Protein 6.7 Albumin 3.4 RPR Titer Nonreactive HIV 1&2 Antibody Screen HIV P24 Antigen 03/05/19 11:40 WBC RBC Hgb Hct MCV MCH MCHC RDW Plt Count MPV Sodium Potassium Chloride Carbon Dioxide Anion Gap BUN Creatinine Est GFR (CKD-EPI)AfAm Est GFR (CKD-EPI)NonAf Random Glucose Calcium Total Bilirubin AST ALT Alkaline Phosphatase Total Protein Albumin RPR Titer HIV 1&2 Antibody Screen Negative HIV P24 Antigen Negative Labs reviewed: serum glucose 109 mg/dl (denies DM, most likely r/t withdrawal, follow up with PCP for monitoring) - Treatment Hospital Course: Detox Protocol Followed, Detoxed Safely, Responded well, Discharged Condition Good, Rehab Referral Accepted - Medication Discharge Medications: Ambulatory Orders NK [No Known Home Medication] 05/15/16 - Diagnosis (1) Alcohol dependence with uncomplicated withdrawal Status: Acute (2) Cocaine dependence Status: Acute (3) Opioid dependence with withdrawal Status: Acute - AMA Did Patient Leave Against Medical Advice: No (Accepted admission to Rehab at [facility])
== END 2019-03-10 10:27 | disposition home or self-care (01) | DRG 773 ==
LOC: YASAS 10:11 → Y6N 11:25
PROVIDERS: ADMIT Allergy & Immunology; ATTEND Allergy & Immunology
PROC: HZ2ZZZZ Detoxification Services for Substance Abuse Treatment (ICD-10-PCS; principal; 2019-03-05)
DX: F11.23 Opioid dependence with withdrawal (principal); F10.230 Alcohol dependence with withdrawal, uncomplicated; F14.20 Cocaine dependence, uncomplicated; F41.1 Generalized anxiety disorder; R63.4 Abnormal weight loss; L81.8 Other specified disorders of pigmentation; Z91.018 Allergy to other foods; Z87.891 Personal history of nicotine dependence; Z59.0 Homelessness
CPT/HCPCS: 36415; 71046-TC-FY; 80053; 85027; 86593; 87389

== ENCOUNTER 2019-09-20 16:27 | Inpatient (IN) | payer OTHER ==
[2019-09-20 18:13] VITALS: BMI 24.7
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
[2019-09-20] MEDS ORDERED: MENTHOL/PHENOL 1 EACH UD MM PRN (21:00)
[2019-09-20] MEDS ORDERED: BISMUTH SUBSALICYLATE 524 MG/30 ML UD PO PRN (21:00)
[2019-09-20] MEDS ORDERED: MAGNESIUM CITRATE 300 ML BOTTLE PO PRN (21:00)
[2019-09-20] MEDS ORDERED: METHOCARBAMOL 500 MG TABLET PO PRN (21:00)
[2019-09-20] MEDS ORDERED: ACETAMINOPHEN 325 MG TABLET (FP) PO PRN ×2 (21:00)
[2019-09-20] MEDS ORDERED: P-EPHED 60MG/TRIPROLIDI 2.5MG TABLET PO PRN (21:00)
[2019-09-20] MEDS ORDERED: IBUPROFEN 400 MG TABLET (FP) PO PRN (21:00)
[2019-09-20] MEDS ORDERED: cloNIDine HCL 0.1 MG TABLET PO PRN (21:00)
[2019-09-20] MEDS ORDERED: MAGNESIUM HYDROX 2400MG/30ML ORAL SUSPENSION 30 ML CUP PO PRN (21:00)
[2019-09-20] MEDS ORDERED: guaiFENesin 200 MG/10 ML 10 ML UNIT-DOSE CUPS PO PRN (21:00)
[2019-09-20] MEDS ORDERED: MAG HYDROX/AL HYDROX/SIMETH 30 ML UNIT-DOSE CUP PO PRN (21:00)
[2019-09-20] MEDS ORDERED: chlordiazePOXIDE HCL 10 MG CAPSULE PO PRN (21:00)
[2019-09-20] MEDS ORDERED: ONDANSETRON *ODT* 4 MG TABLET SL ONE (21:30)
[2019-09-20] MEDS ORDERED: METHADONE HCL 10 MG TABLET (FOR DETOX USE ONLY) PO ONE (21:30)
[2019-09-20] MEDS ORDERED: MELATONIN 5 MG TABLETS PO SCH (22:00)
[2019-09-20] MEDS ORDERED: THIAMINE HCL 100 MG TABLET (FP) PO SCH (22:00)
[2019-09-20] MEDS: hydrOXYzine PAMOATE 25 MG CAPSULE (FP) PO SCH (22:32)
[2019-09-20] MEDS: chlordiazePOXIDE HCL 25 MG CAPSULE PO SCH (22:32)
[2019-09-21] MEDS: chlordiazePOXIDE HCL 25 MG CAPSULE PO SCH ×2 (05:31→13:31)
[2019-09-21] MEDS: hydrOXYzine PAMOATE 25 MG CAPSULE (FP) PO SCH ×4 (05:31→18:20)
[2019-09-21] MEDS ORDERED: METHADONE HCL 5 MG TABLET (FOR DETOX USE ONLY) ONE (08:19)
[2019-09-21] MEDS ORDERED: METHADONE HCL 10 MG TABLET (FOR DETOX USE ONLY) ONE (08:19)
[2019-09-21] MEDS ORDERED: METHADONE (DETOX) 20 MG, METHADONE (DETOX) 5 MG PO ONE (10:00)
[2019-09-21] MEDS ORDERED: PRENATAL VITAMINS W/ FOLIC ACID TABLET (FP) PO SCH (10:00)
[2019-09-21] MEDS ORDERED: NICOTINE 21 MG/24 HOURS TOPICAL PATCH TD SCH (10:00)
[2019-09-21] MEDS: NICOTINE POLACRILEX 2 MG GUM BUC PRN ×2 (10:21→13:32)
--- NOTE | 2019-09-21 11:36 | EKG ---
Test Reason : Blood Pressure : / mmHG Vent. Rate : 064 BPM Atrial Rate : 064 BPM P-R Int : 166 ms QRS Dur : 088 ms QT Int : 420 ms P-R-T Axes : 063 052 021 degrees QTc Int : 433 ms NORMAL SINUS RHYTHM WITH SINUS ARRHYTHMIA NORMAL ECG WHEN COMPARED WITH ECG OF 13-MAY-2016 13:33, NO SIGNIFICANT CHANGE WAS FOUND Confirmed by OANH NERI MD ([id number]) on 09/21/2019 11:36:13 AM Referred By: Confirmed By:OANH NERI MD
[2019-09-21 11:44] LABS: HEMATOCRIT 39.3 % (35.4-49); HEMOGLOBIN 12.9 GM/dL (11.7-16.9); MCH 27.3 pg (25.7-33.7); MCHC 32.9 g/dl (32.0-35.9); MEAN CELL VOLUME 83.1 fl (80-96); MEAN PLT VOLUME 9.4 fl (7.5-11.1); PLATELET COUNT 266 K/MM3 (134-434); RBC 4.73 M/mm3 (4.00-5.60); WHITE BLOOD COUNT 5.7 K/mm3 (4.0-10.0)
[2019-09-21 11:46] LABS: ALBUMIN 3.3 g/dl (3.4-5.0); BILIRUBIN,TOTAL 0.3 mg/dL (0.2-1); BLOOD UREA NITROGEN 11.6 mg/dL (7-18); CALCIUM 8.8 mg/dL (8.5-10.1); CREATININE 0.7 mg/dL (0.55-1.3); POTASSIUM 4.4 mmol/L (3.5-5.1); TOT PROT 6.9 g/dl (6.4-8.2)
--- NOTE | 2019-09-21 13:23 | PN ---
[facility] CIWA - CIWA Score Nausea/Vomitin-No Nausea/No Vomiting Muscle Tremors: 2 Anxiety: 3 Agitation: 1-Slight > Activity Paroxysmal Sweats: 3 Orientation: 0-Oriented Tacttile Disturbances: 0-None Auditory Disturbances: 0-None Visual Disturbances: 0-None Headache: 1-Very Mild CIWA-Ar Total Score: 10 S COWS - Scale Resting Pulse: 0= VT 80 or Below Sweatin= Beads of Sweat on Face Restless Observation: 1= Difficult to Sit Still Pupil Size: 0= Normal to Room Light Bone or Joint Aches: 1= Mild Discomfort Runny Nose/ Eye Tearin= None GI Upset > 30mins: 0= None Tremor Observation of Outstretched Hands: 2= Slight Tremor Visible Yawning Observation: 1= 1-2x During Session Anxiety or Irritability: 2=Irritable/Anxious Goose Flesh Skin: 0=Smooth Skin COWS Score: 10 S Progress Note (SOAP) Subjective: c/o shakes, anxiety, irritability, headache, sweats, and muscle aches. Objective: 09/21/19 13:22 Vital Signs 09/21/19 09/21/19 09/21/19 06:21 08:37 13:00 Temperature 97.8 F 97.2 F L 98 F Pulse Rate 51 L 53 L 72 Respiratory 18 18 18 Rate Blood Pressure 110/70 124/64 130/79 O2 Sat by Pulse 97 100 Oximetry (%) Laboratory Last Values WBC 5.7 K/mm3 (4.0-10.0) 09/21/19 07:55 RBC 4.73 M/mm3 (4.00-5.60) 09/21/19 07:55 Hgb 12.9 GM/dL (11.7-16.9) 09/21/19 07:55 Hct 39.3 % (35.4-49) 09/21/19 07:55 MCV 83.1 fl (80-96) 09/21/19 07:55 MCH 27.3 pg (25.7-33.7) 09/21/19 07:55 MCHC 32.9 g/dl (32.0-35.9) 09/21/19 07:55 RDW 13.0 % (11.9-15.9) 09/21/19 07:55 Plt Count 266 K/MM3 (134-434) D 09/21/19 07:55 MPV 9.4 fl (7.5-11.1) D 09/21/19 07:55 Sodium 138 mmol/L (136-145) 09/21/19 07:55 Potassium 4.4 mmol/L (3.5-5.1) 09/21/19 07:55 Chloride 105 mmol/L (98-107) 09/21/19 07:55 Carbon Dioxide 24 mmol/L (21-32) 09/21/19 07:55 Anion Gap 9 MMOL/L (8-16) 09/21/19 07:55 BUN 11.6 mg/dL (7-18) 09/21/19 07:55 Creatinine 0.7 mg/dL (0.55-1.3) 09/21/19 07:55 Est GFR (CKD-EPI)AfAm 138.75 09/21/19 07:55 Est GFR (CKD-EPI)NonAf 119.71 09/21/19 07:55 Random Glucose 90 mg/dL (74-106) 09/21/19 07:55 Calcium 8.8 mg/dL (8.5-10.1) 09/21/19 07:55 Total Bilirubin 0.3 mg/dL (0.2-1) 09/21/19 07:55 AST 28 U/L (15-37) 09/21/19 07:55 ALT 30 U/L (13-61) 09/21/19 07:55 Alkaline Phosphatase 101 U/L (45-117) 09/21/19 07:55 Total Protein 6.9 g/dl (6.4-8.2) 09/21/19 07:55 Albumin 3.3 g/dl (3.4-5.0) L 09/21/19 07:55 Syphilis Serology Non-reactive (NONREACTIVE) 09/21/19 07:55 Labs noted. Assessment: 09/21/19 13:22 AOx 3, in no acute respiratory distress. Full ROM, ambulating in the unit. Withdrawal symptoms. Plan: continue detox.
[2019-09-21 18:09] VITALS: BP 149/88; PULSE 58; TEMP 97.3
--- NOTE | 2019-09-21 18:34 | DS ---
[facility] Detox Discharge Summary Admission Date: 09/20/19 Discharge Date: 09/21/19 - History Present History: Alcohol Dependence, Cannabis Dependence, Cocaine Dependence, Opioid Dependence - Physical Exam Results Vital Signs: Vital Signs Temperature 97.3 F L 09/21/19 17:20 Pulse Rate 58 L 09/21/19 17:20 Respiratory Rate 16 09/21/19 17:20 Blood Pressure 149/88 09/21/19 17:20 O2 Sat by Pulse Oximetry (%) 100 09/21/19 13:00 Pertinent Admission Physical Exam Findings: withdrawal sx Laboratory Last Values WBC 5.7 K/mm3 (4.0-10.0) 09/21/19 07:55 RBC 4.73 M/mm3 (4.00-5.60) 09/21/19 07:55 Hgb 12.9 GM/dL (11.7-16.9) 09/21/19 07:55 Hct 39.3 % (35.4-49) 09/21/19 07:55 MCV 83.1 fl (80-96) 09/21/19 07:55 MCH 27.3 pg (25.7-33.7) 09/21/19 07:55 MCHC 32.9 g/dl (32.0-35.9) 09/21/19 07:55 RDW 13.0 % (11.9-15.9) 09/21/19 07:55 Plt Count 266 K/MM3 (134-434) D 09/21/19 07:55 MPV 9.4 fl (7.5-11.1) D 09/21/19 07:55 Sodium 138 mmol/L (136-145) 09/21/19 07:55 Potassium 4.4 mmol/L (3.5-5.1) 09/21/19 07:55 Chloride 105 mmol/L (98-107) 09/21/19 07:55 Carbon Dioxide 24 mmol/L (21-32) 09/21/19 07:55 Anion Gap 9 MMOL/L (8-16) 09/21/19 07:55 BUN 11.6 mg/dL (7-18) 09/21/19 07:55 Creatinine 0.7 mg/dL (0.55-1.3) 09/21/19 07:55 Est GFR (CKD-EPI)AfAm 138.75 09/21/19 07:55 Est GFR (CKD-EPI)NonAf 119.71 09/21/19 07:55 Random Glucose 90 mg/dL (74-106) 09/21/19 07:55 Calcium 8.8 mg/dL (8.5-10.1) 09/21/19 07:55 Total Bilirubin 0.3 mg/dL (0.2-1) 09/21/19 07:55 AST 28 U/L (15-37) 09/21/19 07:55 ALT 30 U/L (13-61) 09/21/19 07:55 Alkaline Phosphatase 101 U/L (45-117) 09/21/19 07:55 Total Protein 6.9 g/dl (6.4-8.2) 09/21/19 07:55 Albumin 3.3 g/dl (3.4-5.0) L 09/21/19 07:55 Syphilis Serology Non-reactive (NONREACTIVE) 09/21/19 07:55 - Medication Discharge Medications: Ambulatory Orders NK [No Known Home Medication] 05/15/16 - Diagnosis (1) Alcohol dependence with uncomplicated withdrawal Current Visit: Yes Status: Acute (2) Nicotine dependence Current Visit: Yes Status: Acute Qualifiers: Nicotine product type: cigarettes Substance use status: uncomplicated Qualified Code(s): F17.210 - Nicotine dependence, cigarettes, uncomplicated (3) Opioid dependence with withdrawal Current Visit: Yes Status: Acute (4) Cannabis dependence Current Visit: Yes Status: Chronic (5) Cocaine dependence Current Visit: Yes Status: Chronic Qualifiers: Substance use status: uncomplicated Qualified Code(s): F14.20 - Cocaine dependence, uncomplicated (6) IVDU (intravenous drug user) Current Visit: Yes Status: Chronic (7) Insomnia Current Visit: Yes Status: Chronic Qualifiers: Insomnia type: unspecified Qualified Code(s): G47.00 - Insomnia, unspecified (8) Anxiety and depression Current Visit: No Status: Acute - AMA Did Patient Leave Against Medical Advice: Yes
[2019-09-22] MEDS ORDERED: chlordiazePOXIDE 5 MG CAPSULE PO SCH (05:00)
[2019-09-22] MEDS ORDERED: METHADONE HCL 10 MG TABLET (FOR DETOX USE ONLY) PO ONE (10:00)
[2019-09-23] MEDS ORDERED: chlordiazePOXIDE HCL 10 MG CAPSULE PO PRN
[2019-09-23] MEDS ORDERED: chlordiazePOXIDE HCL 10 MG CAPSULE PO SCH (05:00)
[2019-09-23] MEDS ORDERED: METHADONE (DETOX) 10 MG, METHADONE (DETOX) 5 MG PO ONE (10:00)
[2019-09-24] MEDS ORDERED: chlordiazePOXIDE HCL 10 MG CAPSULE PO ONE (05:00)
[2019-09-24] MEDS ORDERED: METHADONE HCL 10 MG TABLET (FOR DETOX USE ONLY) PO ONE (10:00)
[2019-09-25] MEDS ORDERED: METHADONE HCL 5 MG TABLET (FOR DETOX USE ONLY) PO ONE (06:00)
== END 2019-09-21 18:23 | disposition left against medical advice (07) | DRG 770 ==
LOC: YASAS 16:27 → Y3N 21:10
PROVIDERS: ADMIT Allergy & Immunology; ATTEND Allergy & Immunology
PROC: HZ2ZZZZ Detoxification Services for Substance Abuse Treatment (ICD-10-PCS; principal; 2019-09-20)
DX: F10.230 Alcohol dependence with withdrawal, uncomplicated (principal); F11.23 Opioid dependence with withdrawal; F14.20 Cocaine dependence, uncomplicated; F12.20 Cannabis dependence, uncomplicated; F17.210 Nicotine dependence, cigarettes, uncomplicated; F41.8 Other specified anxiety disorders; F32.9 Major depressive disorder, single episode, unspecified; G47.00 Insomnia, unspecified; Z91.018 Allergy to other foods
CPT/HCPCS: 36415; 80053; 85027; 86780; 93005; 93010; J0735; Q0162; U0003

== ENCOUNTER 2019-12-11 17:29 | Inpatient (IN) | payer OTHER ==
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
[2019-12-11] MEDS ORDERED: BISMUTH SUBSALICYLATE 524 MG/30 ML UD PO PRN (19:56)
[2019-12-11] MEDS ORDERED: chlordiazePOXIDE HCL 25 MG CAPSULE PO PRN (19:56)
[2019-12-11] MEDS ORDERED: DICYCLOMINE HCL 10 MG CAPSULE PO PRN (19:56)
[2019-12-11] MEDS ORDERED: guaiFENesin 200 MG/10 ML 10 ML UNIT-DOSE CUPS PO PRN (19:56)
[2019-12-11] MEDS ORDERED: MENTHOL/PHENOL 1 EACH UD MM PRN (19:56)
[2019-12-11] MEDS ORDERED: MAGNESIUM CITRATE 300 ML BOTTLE PO PRN (19:56)
[2019-12-11] MEDS ORDERED: MAGNESIUM HYDROX 2400MG/30ML ORAL SUSPENSION 30 ML CUP PO PRN (19:56)
[2019-12-11] MEDS ORDERED: ONDANSETRON *ODT* 4 MG TABLET SL PRN (19:56)
[2019-12-11] MEDS ORDERED: P-EPHED 60MG/TRIPROLIDI 2.5MG TABLET PO PRN (19:56)
[2019-12-11] MEDS ORDERED: NALOXONE HCL 0.4 MG/ML VIAL IM PRN (19:56)
[2019-12-11] MEDS ORDERED: ACETAMINOPHEN 325 MG TABLET (FP) PO PRN (19:56)
[2019-12-11] MEDS ORDERED: MAG HYDROX/AL HYDROX/SIMETH 30 ML UNIT-DOSE CUP PO PRN (19:56)
[2019-12-11] MEDS ORDERED: METHADONE HCL 10 MG TABLET (FOR DETOX USE ONLY) PO ONE (19:56)
[2019-12-11] MEDS: THIAMINE HCL 100 MG TABLET (FP) PO SCH (21:43)
[2019-12-11] MEDS: MELATONIN 5 MG TABLETS PO SCH (21:44)
[2019-12-11] MEDS: cloNIDine HCL 0.1 MG TABLET PO PRN (21:44)
[2019-12-11] MEDS: NICOTINE POLACRILEX 2 MG GUM BUC PRN (21:47)
[2019-12-11] MEDS: chlordiazePOXIDE HCL 25 MG CAPSULE PO SCH (22:09)
[2019-12-12] MEDS: IBUPROFEN 400 MG TABLET (FP) PO PRN ×2 (02:01→17:21)
[2019-12-12] MEDS: METHOCARBAMOL 500 MG TABLET PO PRN ×3 (02:01→22:35)
[2019-12-12] MEDS: chlordiazePOXIDE HCL 25 MG CAPSULE PO SCH ×4 (06:12→22:34)
[2019-12-12] MEDS: ACETAMINOPHEN 325 MG TABLET (FP) PO PRN (06:13)
[2019-12-12] MEDS: hydrOXYzine PAMOATE 25 MG CAPSULE (FP) PO PRN ×2 (06:13→17:22)
[2019-12-12] MEDS: NICOTINE POLACRILEX 2 MG GUM BUC PRN ×4 (06:15→17:23)
[2019-12-12] MEDS ORDERED: METHADONE HCL 5 MG TABLET (FOR DETOX USE ONLY) ONE (09:10)
[2019-12-12] MEDS ORDERED: METHADONE HCL 10 MG TABLET (FOR DETOX USE ONLY) ONE (09:10)
[2019-12-12] MEDS ORDERED: METHADONE (DETOX) 20 MG, METHADONE (DETOX) 5 MG PO ONE (10:00)
[2019-12-12 10:16] LABS: HEMATOCRIT 34.7 % (35.4-49); HEMOGLOBIN 11.4 GM/dL (11.7-16.9); MCH 25.4 pg (25.7-33.7); MCHC 32.8 g/dl (32.0-35.9); MEAN CELL VOLUME 77.5 fl (80-96); MEAN PLT VOLUME 7.8 fl (7.5-11.1); PLATELET COUNT 288 K/MM3 (134-434); RBC 4.48 M/mm3 (4.00-5.60); RDW 13.7 % (11.9-15.9); WHITE BLOOD COUNT 6.6 K/mm3 (4.0-10.0)
--- NOTE | 2019-12-12 10:19 | PN ---
[facility] CIWA - CIWA Score Nausea/Vomitin-Mild Nausea/No Vomiting Muscle Tremors: 2 Anxiety: 2 Agitation: 2 Paroxysmal Sweats: No Perspiration Orientation: 0-Oriented Tacttile Disturbances: 1-Very Mild Itch/Numbness Auditory Disturbances: 0-None Visual Disturbances: 0-None Headache: 2-Mild CIWA-Ar Total Score: 10 BHS COWS - Scale Resting Pulse: 0= [place] 80 or Below Sweatin= No chills or Flushing Restless Observation: 0= Sits Still Pupil Size: 1= Pupils >than Normal Bone or Joint Aches: 2= Severe Diffuse Aches Runny Nose/ Eye Tearin= Runny Nose/Eyes GI Upset > 30mins: 2= Nausea/Diarrhea Tremor Observation of Outstretched Hands: 2= Slight Tremor Visible Yawning Observation: 1= 1-2x During Session Anxiety or Irritability: 2=Irritable/Anxious Goose Flesh Skin: 0=Smooth Skin COWS Score: 12 S Progress Note (SOAP) Subjective: alert,irritable,anxious,interrupted sleep,tremor,pain in the body and back,aching pain Objective: 12/12/19 16:45 Vital Signs Temperature 97.3 F L 12/12/19 12:45 Pulse Rate 61 12/12/19 12:45 Respiratory Rate 18 12/12/19 12:45 Blood Pressure 156/92 12/12/19 12:45 O2 Sat by Pulse Oximetry (%) 100 12/12/19 12:45 Laboratory Last Values WBC 6.6 K/mm3 (4.0-10.0) 12/12/19 07:00 RBC 4.48 M/mm3 (4.00-5.60) 12/12/19 07:00 Hgb 11.4 GM/dL (11.7-16.9) L 12/12/19 07:00 Hct 34.7 % (35.4-49) L 12/12/19 07:00 MCV 77.5 fl (80-96) L 12/12/19 07:00 MCH 25.4 pg (25.7-33.7) L 12/12/19 07:00 MCHC 32.8 g/dl (32.0-35.9) 12/12/19 07:00 RDW 13.7 % (11.9-15.9) 12/12/19 07:00 Plt Count 288 K/MM3 (134-434) 12/12/19 07:00 MPV 7.8 fl (7.5-11.1) D 12/12/19 07:00 Sodium 139 mmol/L (136-145) 12/12/19 07:00 Potassium 4.2 mmol/L (3.5-5.1) 12/12/19 07:00 Chloride 105 mmol/L (98-107) 12/12/19 07:00 Carbon Dioxide 29 mmol/L (21-32) 12/12/19 07:00 Anion Gap 5 MMOL/L (8-16) L 12/12/19 07:00 BUN 10.8 mg/dL (7-18) 12/12/19 07:00 Creatinine 0.7 mg/dL (0.55-1.3) 12/12/19 07:00 Est GFR (CKD-EPI)AfAm 138.75 12/12/19 07:00 Est GFR (CKD-EPI)NonAf 119.71 12/12/19 07:00 Random Glucose 76 mg/dL (74-106) 12/12/19 07:00 Calcium 8.3 mg/dL (8.5-10.1) L 12/12/19 07:00 Total Bilirubin 0.2 mg/dL (0.2-1) 12/12/19 07:00 AST 82 U/L (15-37) H 12/12/19 07:00 ALT 156 U/L (13-61) H 12/12/19 07:00 Alkaline Phosphatase 155 U/L (45-117) H 12/12/19 07:00 Total Protein 7.5 g/dl (6.4-8.2) 12/12/19 07:00 Albumin 2.8 g/dl (3.4-5.0) L 12/12/19 07:00 Syphilis Serology Non-reactive (NONREACTIVE) 12/11/19 07:00 Assessment: 12/12/19 16:46 withdrawal symptom Plan: continue detox methadone and librium regimen,fluid,hydration,elevation of alt,ast and alkaline phosphatase probably due to chronic alcoholism,advise abstinence from alcohol
[2019-12-12] MEDS: PRENATAL VITAMINS W/ FOLIC ACID TABLET (FP) PO SCH (10:23)
[2019-12-12] MEDS: NICOTINE 14 MG/24 HOURS TOPICAL PATCH TD SCH (10:24)
[2019-12-12 10:29] LABS: BLOOD UREA NITROGEN 10.8 mg/dL (7-18); POTASSIUM 4.2 mmol/L (3.5-5.1)
[2019-12-12 10:38] LABS: ALBUMIN 2.8 g/dl (3.4-5.0); BILIRUBIN,TOTAL 0.2 mg/dL (0.2-1); CALCIUM 8.3 mg/dL (8.5-10.1); CREATININE 0.7 mg/dL (0.55-1.3); TOT PROT 7.5 g/dl (6.4-8.2)
[2019-12-12] MEDS: THIAMINE HCL 100 MG TABLET (FP) PO SCH (22:34)
[2019-12-12] MEDS: MELATONIN 5 MG TABLETS PO SCH (22:34)
[2019-12-13] MEDS: IBUPROFEN 400 MG TABLET (FP) PO PRN ×3 (00:03→17:42)
[2019-12-13] MEDS ORDERED: chlordiazePOXIDE HCL 25 MG CAPSULE PO SCH (05:00)
[2019-12-13] MEDS: METHOCARBAMOL 500 MG TABLET PO PRN ×3 (08:23→22:21)
[2019-12-13] MEDS: ACETAMINOPHEN 325 MG TABLET (FP) PO PRN (08:24)
[2019-12-13] MEDS: PRENATAL VITAMINS W/ FOLIC ACID TABLET (FP) PO SCH (09:28)
[2019-12-13] MEDS: NICOTINE 14 MG/24 HOURS TOPICAL PATCH TD SCH (09:28)
--- NOTE | 2019-12-13 09:50 | PN ---
[facility] CIWA - CIWA Score Nausea/Vomitin-No Nausea/No Vomiting Muscle Tremors: 2 Anxiety: 3 Agitation: 1-Slight > Activity Paroxysmal Sweats: 3 Orientation: 0-Oriented Tacttile Disturbances: 0-None Auditory Disturbances: 0-None Visual Disturbances: 0-None Headache: 1-Very Mild CIWA-Ar Total Score: 10 BHS COWS - Scale Resting Pulse: 0= [place] 80 or Below Sweatin= Chills/Flushing Restless Observation: 1= Difficult to Sit Still Pupil Size: 0= Normal to Room Light Bone or Joint Aches: 2= Severe Diffuse Aches Runny Nose/ Eye Tearin= None GI Upset > 30mins: 0= None Tremor Observation of Outstretched Hands: 2= Slight Tremor Visible Yawning Observation: 2= >3x During Session Anxiety or Irritability: 2=Irritable/Anxious Goose Flesh Skin: 0=Smooth Skin COWS Score: 10 BHS Progress Note (SOAP) Subjective: c/o muscle aches, headache, anxiety, chills, and irritability. Objective: 12/13/19 09:49 Vital Signs 12/13/19 12/13/19 05:20 08:38 Temperature 97.7 F 97.7 F Pulse Rate 56 L 56 L Respiratory 18 18 Rate Blood Pressure 135/83 140/84 O2 Sat by Pulse 96 96 Oximetry (%) Laboratory Last Values WBC 6.6 K/mm3 (4.0-10.0) 12/12/19 07:00 RBC 4.48 M/mm3 (4.00-5.60) 12/12/19 07:00 Hgb 11.4 GM/dL (11.7-16.9) L 12/12/19 07:00 Hct 34.7 % (35.4-49) L 12/12/19 07:00 MCV 77.5 fl (80-96) L 12/12/19 07:00 MCH 25.4 pg (25.7-33.7) L 12/12/19 07:00 MCHC 32.8 g/dl (32.0-35.9) 12/12/19 07:00 RDW 13.7 % (11.9-15.9) 12/12/19 07:00 Plt Count 288 K/MM3 (134-434) 12/12/19 07:00 MPV 7.8 fl (7.5-11.1) D 12/12/19 07:00 Sodium 139 mmol/L (136-145) 12/12/19 07:00 Potassium 4.2 mmol/L (3.5-5.1) 12/12/19 07:00 Chloride 105 mmol/L (98-107) 12/12/19 07:00 Carbon Dioxide 29 mmol/L (21-32) 12/12/19 07:00 Anion Gap 5 MMOL/L (8-16) L 12/12/19 07:00 BUN 10.8 mg/dL (7-18) 12/12/19 07:00 Creatinine 0.7 mg/dL (0.55-1.3) 12/12/19 07:00 Est GFR (CKD-EPI)AfAm 138.75 12/12/19 07:00 Est GFR (CKD-EPI)NonAf 119.71 12/12/19 07:00 Random Glucose 76 mg/dL (74-106) 12/12/19 07:00 Calcium 8.3 mg/dL (8.5-10.1) L 12/12/19 07:00 Total Bilirubin 0.2 mg/dL (0.2-1) 12/12/19 07:00 AST 82 U/L (15-37) H 12/12/19 07:00 ALT 156 U/L (13-61) H 12/12/19 07:00 Alkaline Phosphatase 155 U/L (45-117) H 12/12/19 07:00 Total Protein 7.5 g/dl (6.4-8.2) 12/12/19 07:00 Albumin 2.8 g/dl (3.4-5.0) L 12/12/19 07:00 Syphilis Serology Non-reactive (NONREACTIVE) 12/11/19 07:00 Labs noted with elevated AST/ALT. Assessment: 12/13/19 09:49 AOX3, in no acute respiratory distress. Full ROM, ambulating in the unit. Elevated liver enzymes. Withdrawal symptoms. Plan: Change librium protocol to ativan protocol.
[2019-12-13] MEDS ORDERED: LORazepam 1 MG TABLET PO PRN (09:52)
[2019-12-13] MEDS ORDERED: METHADONE HCL 10 MG TABLET (FOR DETOX USE ONLY) PO ONE (10:00)
[2019-12-13] MEDS: LORazepam 1 MG TABLET PO SCH ×3 (10:15→22:20)
[2019-12-13] MEDS: NICOTINE POLACRILEX 2 MG GUM BUC PRN ×3 (12:12→17:44)
[2019-12-13] MEDS: hydrOXYzine PAMOATE 25 MG CAPSULE (FP) PO PRN ×2 (17:39→22:20)
[2019-12-13] MEDS: cloNIDine HCL 0.1 MG TABLET PO PRN (17:44)
[2019-12-13] MEDS: MELATONIN 5 MG TABLETS PO SCH (22:20)
[2019-12-13] MEDS: THIAMINE HCL 100 MG TABLET (FP) PO SCH (22:20)
[2019-12-14] MEDS ORDERED: chlordiazePOXIDE HCL 10 MG CAPSULE PO PRN
[2019-12-14] MEDS ORDERED: LORazepam 1 MG TABLET PO SCH (05:00)
[2019-12-14] MEDS ORDERED: chlordiazePOXIDE HCL 10 MG CAPSULE PO SCH (05:00)
[2019-12-14] MEDS: METHOCARBAMOL 500 MG TABLET PO PRN (05:22)
[2019-12-14] MEDS: IBUPROFEN 400 MG TABLET (FP) PO PRN (05:22)
[2019-12-14] MEDS: NICOTINE POLACRILEX 2 MG GUM BUC PRN (05:23)
[2019-12-14 06:16] VITALS: BP 147/92; PULSE 52; TEMP 98.3
[2019-12-14] MEDS ORDERED: METHADONE (DETOX) 10 MG, METHADONE (DETOX) 5 MG PO ONE (10:00)
--- NOTE | 2019-12-14 11:28 | DS ---
[facility] Detox Discharge Summary Admission Date: 12/11/19 Discharge Date: 12/14/19 (Pt left AMA) - History Present History: Alcohol Dependence, Opioid Dependence Additional Comments: Pt left AMA. Pt did not complete the detox protocol. Pt states, "I need to get out of here". An attempt to let pt stay and complete the detox protocol failed. Pt is encouraged to follow-up with an outpatient CD program and also to follow- up with his pmd but was adamant. Pt is AOX3, in no acute respiratory distress, Full ROM, and ambulatory. Pertinent Past History: h/o heroin and alcohol use disorder. - Physical Exam Results Vital Signs: Vital Signs Temperature 98.3 F 12/14/19 06:15 Pulse Rate 52 L 12/14/19 06:15 Respiratory Rate 18 12/14/19 06:15 Blood Pressure 147/92 12/14/19 06:15 O2 Sat by Pulse Oximetry (%) 100 12/14/19 06:15 Vital Signs 12/14/19 06:15 Temperature 98.3 F Pulse Rate 52 L Respiratory 18 Rate Blood Pressure 147/92 O2 Sat by Pulse 100 Oximetry (%) Laboratory Last Values WBC 6.6 K/mm3 (4.0-10.0) 12/12/19 07:00 RBC 4.48 M/mm3 (4.00-5.60) 12/12/19 07:00 Hgb 11.4 GM/dL (11.7-16.9) L 12/12/19 07:00 Hct 34.7 % (35.4-49) L 12/12/19 07:00 MCV 77.5 fl (80-96) L 12/12/19 07:00 MCH 25.4 pg (25.7-33.7) L 12/12/19 07:00 MCHC 32.8 g/dl (32.0-35.9) 12/12/19 07:00 RDW 13.7 % (11.9-15.9) 12/12/19 07:00 Plt Count 288 K/MM3 (134-434) 12/12/19 07:00 MPV 7.8 fl (7.5-11.1) D 12/12/19 07:00 Sodium 139 mmol/L (136-145) 12/12/19 07:00 Potassium 4.2 mmol/L (3.5-5.1) 12/12/19 07:00 Chloride 105 mmol/L (98-107) 12/12/19 07:00 Carbon Dioxide 29 mmol/L (21-32) 12/12/19 07:00 Anion Gap 5 MMOL/L (8-16) L 12/12/19 07:00 BUN 10.8 mg/dL (7-18) 12/12/19 07:00 Creatinine 0.7 mg/dL (0.55-1.3) 12/12/19 07:00 Est GFR (CKD-EPI)AfAm 138.75 12/12/19 07:00 Est GFR (CKD-EPI)NonAf 119.71 12/12/19 07:00 Random Glucose 76 mg/dL (74-106) 12/12/19 07:00 Calcium 8.3 mg/dL (8.5-10.1) L 12/12/19 07:00 Total Bilirubin 0.2 mg/dL (0.2-1) 12/12/19 07:00 AST 82 U/L (15-37) H 12/12/19 07:00 ALT 156 U/L (13-61) H 12/12/19 07:00 Alkaline Phosphatase 155 U/L (45-117) H 12/12/19 07:00 Total Protein 7.5 g/dl (6.4-8.2) 12/12/19 07:00 Albumin 2.8 g/dl (3.4-5.0) L 12/12/19 07:00 Syphilis Serology Non-reactive (NONREACTIVE) 12/11/19 07:00 COVID-19 (SERGEI) Not detected (Not Detected) 12/11/19 22:30 Labs noted. Pertinent Admission Physical Exam Findings: withdrawal symptoms. - Treatment Hospital Course: Detox Protocol Followed - Medication Discharge Medications: Ambulatory Orders NK [No Known Home Medication] 05/15/16 - Diagnosis (1) Alcohol dependence with uncomplicated withdrawal Status: Acute (2) IVDU (intravenous drug user) Status: Chronic (3) Opioid dependence with withdrawal Status: Acute (4) Nicotine dependence Status: Chronic Qualifiers: Nicotine product type: cigarettes Substance use status: uncomplicated Qualified Code(s): F17.210 - Nicotine dependence, cigarettes, uncomplicated - AMA Did Patient Leave Against Medical Advice: Yes
[2019-12-15] MEDS ORDERED: LORazepam 0.5 MG TABLET PO SCH (05:00)
[2019-12-15] MEDS ORDERED: chlordiazePOXIDE HCL 10 MG CAPSULE PO SCH (05:00)
[2019-12-15] MEDS ORDERED: METHADONE HCL 10 MG TABLET (FOR DETOX USE ONLY) PO ONE (10:00)
[2019-12-16] MEDS ORDERED: LORazepam 0.5 MG TABLET PO PRN
[2019-12-16] MEDS ORDERED: chlordiazePOXIDE HCL 10 MG CAPSULE PO ONE (05:00)
[2019-12-16] MEDS ORDERED: LORazepam 0.5 MG TABLET PO ONE (05:00)
[2019-12-16] MEDS ORDERED: METHADONE HCL 5 MG TABLET (FOR DETOX USE ONLY) PO ONE (06:00)
== END 2019-12-14 08:45 | disposition left against medical advice (07) | DRG 770 ==
LOC: YASAS 17:29 → Y3N 20:10
PROVIDERS: ADMIT Allergy & Immunology; ATTEND Allergy & Immunology
PROC: HZ2ZZZZ Detoxification Services for Substance Abuse Treatment (ICD-10-PCS; principal; 2019-12-11)
DX: F11.23 Opioid dependence with withdrawal (principal); F10.230 Alcohol dependence with withdrawal, uncomplicated; F17.210 Nicotine dependence, cigarettes, uncomplicated; F19.24 Other psychoactive substance dependence with psychoactive substance-induced mood disorder; G47.00 Insomnia, unspecified; L81.8 Other specified disorders of pigmentation; R63.8 Other symptoms and signs concerning food and fluid intake; R74.8 Abnormal levels of other serum enzymes; R76.11 Nonspecific reaction to tuberculin skin test without active tuberculosis; Z91.018 Allergy to other foods; Z59.0 Homelessness
CPT/HCPCS: 36415; 80053; 85027; 86780; J0735; U0003